=== PATIENT | male | born 1995 | race Caucasian/White ===

== ENCOUNTER 2023-03-12 13:10 | Emergency (ER) | payer OTHER, SELFPAY ==
[2023-03-12 13:12] VITALS: BP 123/87; PULSE 62; RESP 18; TEMP 35.9; O2SAT 100; BMI 26.6
--- NOTE | 2023-03-12 13:12 | ED.GENADULT ---
HPI - General Adult General Chief complaint: General Medical Stated complaint: chemical in eye Time Seen by Provider: 03/12/23 13:36 History of Present Illness HPI narrative: Patient is a 27-year-old male who presents to the emergency department for work related chemical exposure to the eye. 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 Rinsed the eye afterwards. Denies any burning sensation, redness, vision changes. Upon speaking with pharmacy, they reported that insulin may be absorbed in this fashion: Patient is checking in to have blood glucose level assessed. Asymptomatic of hypoglycemia at this time Related Data Allergies Allergy/AdvReac Type Severity Reaction Status Date / Time No Known Allergies Allergy Verified 03/12/23 13:12 Review of Systems Review of Systems: Yes all other systems are reviewed and are negative PMFSH Past Medical History Attestation statement: The following information was validated with the patient. Social History Social History Advance Directives: No Advance Directives Information Provided: No Physical Exam ED Vital Signs: Vital Signs - 24 hr 03/12/23 13:12 Temperature 96.7 F L Pulse Rate 62 Respiratory Rate 18 Blood Pressure 123/87 Pulse Oximetry 100 Oxygen Delivery Method Room Air BMI result Body Mass Index 26.6 Appearance: Alert.?Oriented to person, place and time. No acute distress.?Normal affect. Eyes: Pupils equal, round and reactive to light.?EOMi? Neck: Normal inspection.? Neck supple.?? CVS: Heart sounds normal. Normal heart rate and rhythm.? Pulses normal.?? Respiratory: No respiratory distress.? Lung sounds clear to auscultation bilaterally?? Skin: Skin warm and dry.? Normal skin color.? Neuro: Moves all extremities spontaneously. Sensation intact bilaterally. Ambulates with normal steady gait. Medical Decision Making Medical Decision Making MDM Narrative: Patient is a 27-year-old male who presents emergency department for evaluation of chemical spray into left only. No acute visual changes. Insulin exposure to the eye, per pharmacy absorption may occur by this route, recommended assessment of blood glucose level. Patient is not a diabetic. Not having any active symptoms of hypoglycemia. Physical examination is normal. Point of care glucose 101. At this time feel that patient is stable for discharge, discussed worrisome signs and symptoms that would warrant re-evaluation, including symptoms of hypoglycemia. All questions answered. Differential Diagnosis Differential Diagnoses: The differential diagnosis associated with the presentation includes (chemical exposure to eye, chemical burn, less likely corneal abrasion, ) Lab Data MDM Lab Attestation statement: I reviewed the patient's lab results. (As noted above) Labs: Lab Results 03/12/23 Range/Units 13:18 POC Glucose 101 (60-115) mg/dL Discharge Plan Discharge Clinical Impression: Chemical exposure of eye Patient Disposition: Home, Self-Care Additional Instructions: Return back to emergency department any new or worsening symptoms or concerns. If you develop symptoms of hypoglycemia, you should seek re-evaluation. Referrals: [facility] [Primary Care Provider] - Interventions: ED Discharge Assessment Last Done: 03/12/23 13:28
[2023-03-12 13:22] LABS: Glucose, Whole Blood 101 mg/dL (60-115)
--- NOTE | 2023-03-12 13:28 | PC.NURSE ---
POC WNL, provider aware.
== END 2023-03-12 13:38 | disposition home or self-care (01) ==
PROVIDERS: Emergency Provider Emergency Medicine
DX: Z04.2 Encounter for examination and observation following work accident (principal); T38.3X1A Poisoning by insulin and oral hypoglycemic [antidiabetic] drugs, accidental (unintentional), initial encounter; Y92.239 Unspecified place in hospital as the place of occurrence of the external cause
CPT/HCPCS: 82947; 99282

== ENCOUNTER 2023-03-24 08:08 | Outpatient (AMB) | payer OTHER, SELFPAY ==
[2023-03-24 08:18] VITALS: BP 112/62; PULSE 59; O2SAT 98; BMI 27.4
--- NOTE | 2023-03-24 08:18 | A.OFFPC_ITS ---
Vital Signs 03/24/23 08:18 Height 5 ft 7 in Weight 175 lb BMI 27.4 BP 112/62 Blood Pressure Location Lt brachial Position Sitting Pulse 59 Pulse Source Pulse Oximeter Pulse Oximetry (%) 98 Oxygen Delivery Method Room Air Intake Visit Reasons: New Patient, Lower back pain Allergies No Known Allergies Allergy (Verified 03/24/23 08:28) Medication List - Last Reconciled 03/24/23 by ARTURO Morales No Known Home Meds Tobacco use date assessed: 03/24/23 Dental Screening Dental Screen Date: 03/24/23 Did you have a dental visit in the last 12 months?: Yes Did you have a dental problem in the last 6 months where you did not have access to dental care?: No Was dental information given to patient?: Patient has dentist HPI HPI Comments History of Present Illness Details 27-year-old male new patient study to [facility] medical history significant for right bundle branch block, patient also reports has had palpitations in the past but states he has worn a Holter monitor which was unremarkable a except showed PVCs. Patient reports lumbar back pain x1 month, patient reports pain at times is is 6-7/10 aching pain but at times can feel very sharp like a nerve pain. Patient reports using hiwr-jxx-teidtrl lidocaine or Chaim-Jarvis with some relief. Patient states pain is worse with prolonged sitting. Denies any numbness or tingling in the lower extremities are lower extremity weakness, no bowel or bladder incontinence. Patient also reports cervical neck pain primarily where his stethoscope rests on his neck. Discussed physical therapy which patient patient would like to proceed with x-ray for further evaluation as well as physical therapy. [facility] Medical History (Updated 03/24/23 @ 08:38 by ARTURO Morales) Right bundle branch block Surgical History (Updated 03/24/23 @ 08:30 by ARTURO Morales) Hx of LASIK Family History Mother No problems noted. Father No problems noted. Sister No problems noted. Social History (Updated 03/24/23 @ 08:31 by ARTURO Morales) Housing: House Alcohol intake: never Patient Tobacco Use Status: Never used Tobacco e-Cigarette/Vaping Use: Never Used Second Hand Smoke Exposure: No service: No Current occupational status: employed Current occupational exposures/hazards: No Cognitive needs: No Hearing needs: No Vision needs: No Questionnaire PHQ-9 Over the last 2 weeks, how often have you been bothered by any of the following problems? 1. Little interest or pleasure in doing things: not at all 2. Feeling down, depressed, or hopeless: not at all 3. Trouble falling or staying asleep, or sleeping too much: not at all 4. Feeling tired or having little energy: not at all 5. Poor appetite or overeating: not at all 6. Feeling bad about yourself - or that you are a failure or have let yourself or your family down: not at all 7. Trouble concentrating on things, such as reading the newspaper or watching television: not at all 8. Moving or speaking so slowly that other people could have noticed. Or the opposite - being so fidgety or restless that you have been moving around a lot more than usual: not at all 9. Thoughts that you would be better off or of hurting yourself in some way: not at all Total score: 0 Depression Screening Interpretation: Negative Depression Screening Done: Yes 32830 - PHQ-9 Billing: Yes Source: Developed by Drs. Liam Taylor, Charito Gomez, Alexey Medrano and colleagues, with an educational roosevelt from [employer]. Thrive Questionnaire Date Thrive assessed: 03/24/23 I am a: Patient What is your living situation today?: I have a steady place to live Within the past 12 months, did the food you bought not last and you didn't have the money to get more?: Never true Within the past 12 months, did you worry whether your food would run out before you got money to buy more?: Never true Do you have trouble paying for medicines?: No Do you have trouble getting transportation to medical appointments?: No Do you have trouble paying your heating and electricity bill?: No Do you have trouble taking care of your child, family member or friend?: No Do you have trouble with day-to-day activities such as bathing, preparing meals, shopping, managing finances, etc.?: No Are you currently unemployed and looking for a job?: No Are you interested in more education?: No Currently or been in a relationship where the following occur: no concerns reported AUDIT C Alcohol Use Questionnaire (AUDIT-C) 1. How often do you have a drink containing alcohol?: Never Total Score: 0 OLLIE-7 AMB Questionnaire OLLIE-7 Date OLLIE - 7 assessed: 03/24/23 Feeling nervous, anxious, or on edge: 0 = Not at all Not being able to stop or control worryin = Not at all Worrying too much about different things: 0 = Not at all Trouble relaxin = Not at all Being so restless that it is hard to sit still: 0 = Not at all Becoming easily annoyed or irritable: 0 = Not at all Feeling afraid as if something awful might happen: 0 = Not at all Total OLLIE-7 score (0-4 normal; 5-9 mild; 10-14 moderate; 15-21 severe): 0 Source: Developed by Drs. Liam Taylor, Charito Gomez, Alexey Medrano and colleagues, with an educational roosevelt from [employer]. OLLIE-7 Assessment Billing OLLIE-7 Assessment Tool: OLLIE-7 Assessment 55096 Review of Systems Const Denies chills, Denies fatigue, Denies fever(s) and Denies poor appetite Eyes Denies no additional complaints ENT Reports Normal hearing present and Reports neck pain Card Denies chest pain, Denies syncope, Denies rapid heart rate and Denies dyspnea Resp Denies cough and Denies dyspnea GI Denies change in stool character, Denies constipation, Denies diarrhea, Denies nausea and Denies vomiting Denies dysuria, Denies urinary frequency and Denies urinary urgency Musc Reports back pain and Reports neck pain Neuro Reports Normal hearing present, Denies confusion and Denies syncope Psych Denies confusion Endo Denies fatigue Physical exam (Primary Care) Vital Signs: Last Vital Signs Pulse 59 03/24/23 08:18 BP 112/62 03/24/23 08:18 Pulse Ox 98 03/24/23 08:18 Oxygen Delivery Method Room Air 03/24/23 08:18 BMI result Body Mass Index 27.4 Tobacco/Smoking Status: Tobacco use Status Tobacco use date assessed 03/24/23 03/24/23 08:19 Patient Tobacco Use Status Never used Tobacco 03/24/23 08:31 e-Cigarette/Vaping Use Never Used 03/24/23 08:31 PHQ-9: PHQ-9 Score PHQ-9: Total score 0 03/24/23 08:35 Depression Screening Interpretation: Negative Thrive Assessment: Date of Thrive Assessment Date Thrive assessed 03/24/23 03/24/23 08:25 Currently or been in a relationship where the following occur: no concerns reported Const General: No confusion Orientation/consciousness: No confusion HENMT Head: Yes normocephalic and Yes atraumatic Eyes Conjunctivae: conjunctivae normal Chest Chest palpation & inspection: normal inspection of the chest Resp Effort & Inspection: normal respiratory effort Auscultation: clear to auscultation bilaterally, no crackles, no rhonchi and no wheezes Cardio Rate: regular rate Rhythm: regular rhythm Heart sounds: S1 normal heart sound present and S2 normal heart sound present GI Inspection: Yes normal to inspection Back/Spine/Pelvis Cervical Spine: normal cervical lordosis, cervical ROM normal, No Cervical spine tenderness and No step off deformity Thoracic/Lumbar Spine: thoracic and lumbar spine normal to inspection, straight leg raise negative bilaterally, No paraspinal muscle tenderness, No thoracic spinal tenderness and No lumbar spinal tenderness Pelvis: no buttock tenderness Neuro General: No confusion Cranial nerves: Yes Normal hearing present Extrem General: No edema Assessment and Plan Assessment & Plan (1) Cervical pain (neck): Code(s): M54.2 - Cervicalgia Plan: Cervical neck x-ray ordered as requested by patient. Patient advise can take [id number]-qtqqdbp Tylenol or ibuprofen as needed for pain and apply heat. (2) Lumbar back pain: Code(s): M54.50 - Low back pain, unspecified Plan: Lumbar spine x-ray ordered for further evaluation. Referral entered to physical therapy. Patient advise can take efeg-jet-vtvtzxu Tylenol or ibuprofen as needed for pain and apply heat. Plan Follow-up in 3 months for physical appointment. Fasting labs ordered. Orders: Orders XR cervical spine 2V Today M54.2 - Cervicalgia Complete Blood Count Auto Diff Today Z13.0 - Encounter for screening for diseases of the blood and blood-forming organs and certain disorders involving the immune mechanism Comprehensive [place]. Panel Fast Today Z13.1 - Encounter for screening for diabetes mellitus Lipid Panel Today Z13.220 - Encounter for screening for lipoid disorders TSH reflex Free T4 Today Z13.29 - Encounter for screening for other suspected endocrine disorder XR lumbar spine 2-3V Today M54.50 - Low back pain, unspecified PT Evaluation and Treatment Today M54.50 - Low back pain, unspecified Coding Level of Care Code New Pt Level 3 (25710) Diagnoses Cervical pain (neck) M54.2 Lumbar back pain M54.50 Additional Codes OLLIE-7 Assessment Billing - OLLIE-7 Assessment Tool: OLLIE-7 Assessment 74164 ([id number])
== END 2023-03-24 08:49 | disposition home or self-care (01) ==
PROVIDERS: PCP Nurse Practitioner Family; Visit Provider Nurse Practitioner Family
DX: M54.2 Cervicalgia (principal); M54.50 Low back pain, unspecified
CPT/HCPCS: 99203

== ENCOUNTER 2023-03-25 10:17 | Outpatient (REF) | payer OTHER, SELFPAY ==
--- NOTE | ~2023-03-25 | XR_ITS ---
EXAMINATION: XR CERVICAL SPINE CLINICAL INFORMATION: Neck pain COMPARISON: None available. TECHNIQUE: 4 views of the cervical spine were obtained. FINDINGS: The visualized cervical vertebrae are intact with normal alignment. Odontoid process is intact with normal C1/C2 lateral masses alignment. Pre-dental interval is normal. Pre vertebral soft tissue is normal in thickness. Bilateral oblique x-rays of cervical spine show patent cervical neural foramina. XR/XR cervical spine 2V IMPRESSION: 1. Normal cervical spine x-ray. 2. No fracture or dislocation of cervical spine is seen.
--- NOTE | ~2023-03-25 | XR_ITS ---
EXAMINATION: XR LUMBOSACRAL SPINE CLINICAL INFORMATION: Low back pain COMPARISON: None available. TECHNIQUE: Three views of the lumbosacral spine. FINDINGS: The visualized lumbar vertebrae are intact with normal alignment. Intervertebral disc spaces are normal. XR/XR lumbar spine 2-3V IMPRESSION: 1. Normal lumbosacral spine x-ray. 2. No fracture or dislocation of lumbar spine is seen.
[2023-03-25 10:25] LABS: MANUAL DIFF FLAG NO
[2023-03-25 10:56] LABS: Basophils Absolute Auto 0.1 X10*3/uL (0.0-0.2); Basophils Percent Auto 1.1 % (0-2); Eosinophils Absolute Auto 0.2 X10*3/uL (0.0-0.4); Hematocrit 42.4 % (42.0-52.0); Hemoglobin 14.5 g/dl (14.0-18.0); Imm Gran Abs Auto 0.02 X10*3/uL (0.00-0.03); Imm Gran Pct Auto 0.4 % (0.0-0.4); Lymphocytes Absolute Auto 1.6 X10*3/uL (1.2-4.9); Lymphocytes Percent Auto 28.2 % (20-40); Mean Corpuscular HGB Conc 34.2 g/dl (31.0-36.0); Mean Corpuscular Hemoglobin 30.1 pg (27.0-33.0); Mean Corpuscular Volume 88.1 fL (80.0-98.0); Mean Platelet Volume 12.9 fL (9.4-12.4); Monocytes Absolute Auto 0.5 X10*3/uL (0.1-1.2); Monocytes Percent Auto 8.9 % (2-11); Neutrophils Absolute Auto 3.2 x10*3/uL (2.0-8.3); Neutrophils Percent Auto 57.4 % (45-73); Platelet Count 176 X10*3/uL (160-400); Red Blood Count 4.81 X10*6/uL (4.60-5.80); Red Cell Distribution Width 12.5 % (11.0-16.0); White Blood Count 5.5 X10*3/uL (4.8-10.8)
[2023-03-25 11:27] LABS: Alanine Aminotransferase 42 U/L (0-40); Albumin Level 4.5 g/dL (3.5-5.0); Alkaline Phosphatase 46 U/L (39-117); Anion Gap 11 (12-20); Aspartate Amino Transferase 22 U/L (5-37); Bilirubin Total 0.7 mg/dL (0.0-1.0); Blood Urea Nitrogen 16 mg/dL (9-16); Calcium 9.5 mg/dL (8.4-10.2); Carbon Dioxide 29 mmol/L (22-29); Chloride 103 mmol/L (96-108); Cholesterol 174 mg/dL (<200); Estimated Glomerular Filt Rate > 60; Glucose Fasting 112 mg/dL (60-99); HDL Cholesterol 43 mg/dL (>40); LDL Cholesterol Calculated 115 mg/dL (<100); Potassium 4.3 mmol/L (3.3-5.1); Sodium 139 mmol/L (135-145); Total Protein 7.9 g/dL (6.5-8.0); Triglycerides 84 mg/dL (<150)
== END 2023-03-25 10:18 | disposition home or self-care (01) ==
LOC: HO.XRAY 10:17
PROVIDERS: PCP Nurse Practitioner Family; Visit Provider Nurse Practitioner Family
DX: Z13.220 Encounter for screening for lipoid disorders (principal); Z13.0 Encounter for screening for diseases of the blood and blood-forming organs and certain disorders involving the immune mechanism; Z13.29 Encounter for screening for other suspected endocrine disorder; M54.2 Cervicalgia; M54.50 Low back pain, unspecified
CPT/HCPCS: 36415; 72040; 72100; 80053; 80061; 84443; 85025

== ENCOUNTER 2023-05-25 11:00 | Outpatient (RCR) | payer OTHER, SELFPAY ==
--- NOTE | 2023-04-26 12:56 | MHC.PT.EP ---
[facility] [place] Office [place] Office [place] Office [address] Josep Talavera [address] [phone] F: [phone] F: [phone] F: [phone] F: [phone] Physical Therapy Plan of Care Date of Evaluation: 04/26/23 Date of Surgery: Diagnosis: This is a 27 yo male presenting to skilled PT with a script for lumbar pain. Assessment: This is a 27 yo male presenting to skilled PT with a script for lumbar pain. Patient reports lumbar back pain x2 months now insidiously onset. 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 Patient reports pain at times is up to a 5/10 but can be as low as a 2/10. Pain is located centrally and L side low back, but this can radiate to the R as well. Pain improves with sitting up straight or laying supine. Pain increases with bending and flexion patterns as well as prolonged sitting in poor chair support. Pain is described as discomfort, aching however can be sharp when bad. Patient reports using esss-juv-ryxecua tylenol and MH for pain relief. Denies any numbness or tingling in the lower extremities, no groin pain changes to sensation. Assessment reveals pain that ranges from up to a 2-5/10 at the worst. Patient demos decreased lumbar ROM, core, back and glut strength, TTP at L PSIS and mild LLD on R, impaired posture with forward head and rounded shoulders when relaxed with posterior pelvic tilt. Based on functional limitations, impaired QOL and pain tolerance patient is a good candidate for skilled PT 2x/wk for 4wks. Frequency and Duration: The patient will be seen 2x/wk for 4wks Short Term Goals: Pt will demonstrate improved postural awareness and understanding of core engagement with supine and standing tasks without cues throughout session to improve overall back safety in 2 weeks. Pt will demonstrate centralization of sx in 2 weeks. Pt will continue to reinforce precautions, sitting, standing and ADL modifications with proper body mechanics in 2 wks. Banquet Houseperson Goals: Pt will demonstrate improved outcome measure by 5 points in 4 weeks for improved functional mobility. Pt will demonstrate ability to bend and lift WNL min to no pain for work related tasks in 4 wks. Pt will be I in HEP and compliant in 4wks Treatment Plan: Modalities to reduce pain, spasms and effusion. Manual therapy to restore motion and function. Therapeutic exercise to improve strength and flexibility. Neuromuscular re-education for posture and balance. Therapeutic activities to return to functional activities of daily living. Electronically signed by: Rachel Menezes PT Please sign and return to therapist. Thank you for your referral.
--- NOTE | 2023-06-23 13:56 | MHC.PT.DC ---
[facility] [place] Office [place] Office [place] Office [address] Josep Talavera [address] [phone] F: [phone] F: [phone] F: [phone] F: [phone] Physical Therapy Discharge Report Diagnosis: This is a 27 yo male presenting to skilled PT with a script for lumbar pain. Date of Surgery: Date of Evaluation: 04/26/23 Date of Discharge: 06/23/23 Treatments to Date: 5 Cancellations to Date: 0 No Shows to Date: 0 Discharge Status: Achieved Goals Improved Function Independent with HEP Patient Elected to Stop Discharge Summary: 05/25/23: Patient has been going to the gym, he was a little sore after last session but it didn't last longer than a day. He has no more appointments scheduled and we had a discussion about continuing PT or not. We settled on more consistency at the gym and focusing on glut, back and core strengthening. I educated him that at this time he doesn't appear to need skilled PT but ill leave his chart open for 30 days. Electronically signed by: Rachel Menezes, PT Please sign and return to therapist. Thank you for your referral.
== END 2023-06-23 13:57 | disposition home or self-care (01) ==
LOC: HO.PTCHIC 11:00
PROVIDERS: PCP Nurse Practitioner Family; Visit Provider Nurse Practitioner Family
DX: M54.50 Low back pain, unspecified (principal)
CPT/HCPCS: 97110; 97140; 97161

== ENCOUNTER 2023-12-22 15:59 | Outpatient (AMB) | payer OTHER, SELFPAY ==
[2023-12-22 16:08] VITALS: BP 116/70; PULSE 60; O2SAT 95; BMI 25.8
--- NOTE | 2023-12-22 16:08 | MHC.PC.OV ---
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 Required: No Accompanied by: Self / Same As Patient Allergies No Known Allergies Allergy (Verified 03/24/23 08:28) Medication List - Last Reconciled 12/22/23 by Surjit Ceja MD epinephrine IM Tobacco use date assessed: 12/22/23 Dental Screening Dental Screen Date: 12/22/23 Did you have a dental visit in the last 12 months?: Yes Did you have a dental problem in the last 6 months where you did not have access to dental care?: No Was dental information given to patient?: Patient has dentist HPI Annual Exam HPI Details 28-year-old male(noted 10 lb weight loss) with a history of elevated fasting glucose coming in for physical exam last seen in 2022 having back pain. Patient was sent for physical therapy had an x-ray done both normal lumbosacral spine. had EGD before and ET done having occ dysphagia. complains of low back pain, had PT done and for a numbner of months pain radiates to the L leg , hand pain bilateral with hand numbness L thumb area. problem with sleeping PFSH Medical History (Updated 12/22/23 @ 17:18 by Surjit Ceja MD) Right bundle branch block Surgical History (Updated 03/24/23 @ 08:30 by ARTURO Morales) Hx of LASIK Family History (Updated 12/22/23 @ 17:08 by Surjit Ceja MD) Mother No problems noted. Father No problems noted. Sister No problems noted. Maternal Aunt Hyperthyroidism Maternal Grandmother Diabetes mellitus Social History (Updated 03/24/23 @ 08:31 by ARTURO Morales) Housing: House Alcohol intake: never Patient Tobacco Use Status: Never used Tobacco Tobacco use type: Cigarette e-Cigarette/Vaping Use: Never Used Second Hand Smoke Exposure: No service: No Current occupational status: employed Current occupational exposures/hazards: No Cognitive needs: No Hearing needs: No Vision needs: No Questionnaire PHQ-9 Over the last 2 weeks, how often have you been bothered by any of the following problems? 1. Little interest or pleasure in doing things: not at all 2. Feeling down, depressed, or hopeless: not at all 3. Trouble falling or staying asleep, or sleeping too much: more than half the days 4. Feeling tired or having little energy: several days 5. Poor appetite or overeating: not at all 6. Feeling bad about yourself - or that you are a failure or have let yourself or your family down: not at all 7. Trouble concentrating on things, such as reading the newspaper or watching television: not at all 8. Moving or speaking so slowly that other people could have noticed. Or the opposite - being so fidgety or restless that you have been moving around a lot more than usual: not at all 9. Thoughts that you would be better off or of hurting yourself in some way: not at all Total score: 3 Source: Developed by Drs. Liam Taylor, Charito Gomez, Alexey Medrano and colleagues, with an educational roosevelt from [employer]. Thrive Questionnaire Date Thrive assessed: 12/15/23 I am a: Patient What is your living situation today?: I have a steady place to live Within the past 12 months, did the food you bought not last and you didn't have the money to get more?: Never true Within the past 12 months, did you worry whether your food would run out before you got money to buy more?: Never true Do you have trouble paying for medicines?: No Do you have trouble getting transportation to medical appointments?: No Do you have trouble paying your heating and electricity bill?: No Do you have trouble taking care of your child, family member or friend?: No Do you have trouble with day-to-day activities such as bathing, preparing meals, shopping, managing finances, etc.?: No Are you currently unemployed and looking for a job?: No Are you interested in more education?: No Please select the resources that you would like help with: None Currently or been in a relationship where the following occur: No concerns reported THRIVE Score: 0 AUDIT C Alcohol Use Questionnaire (AUDIT-C) 1. How often do you have a drink containing alcohol?: Never 2. How many drinks containing alcohol do you have on a typical day when you are drinking?: 1 or 2 3. How often do you have six or more drinks on one occasion?: Never Total Score: 0 OLLIE-7 AMB Questionnaire OLLIE-7 Date OLLIE - 7 assessed: 03/24/23 Feeling nervous, anxious, or on edge: 0 = Not at all Not being able to stop or control worryin = Not at all Worrying too much about different things: 0 = Not at all Trouble relaxin = Not at all Being so restless that it is hard to sit still: 0 = Not at all Becoming easily annoyed or irritable: 0 = Not at all Feeling afraid as if something awful might happen: 0 = Not at all Total OLLIE-7 score (0-4 normal; 5-9 mild; 10-14 moderate; 15-21 severe): 0 Source: Developed by Drs. Liam Taylor, Charito Gomez, Alexey Medrano and colleagues, with an educational roosevelt from [employer]. Review of Systems Const Denies poor appetite and Denies weakness Eyes Denies no additional complaints ENT Reports Normal hearing present, Denies dizziness, Denies nasal congestion, Denies tinnitus and Denies sore throat Card Denies chest pain, Denies syncope, Denies rapid heart rate and Denies dyspnea Resp Denies cough and Denies dyspnea GI Denies change in stool character, Reports constipation, Denies diarrhea, Denies nausea and Denies vomiting Denies dysuria and Denies urinary frequency Neuro Reports Normal hearing present, Denies confusion, Denies dizziness, Denies syncope and Denies weakness Psych Denies confusion Physical exam (Primary Care) Vital Signs: Last Vital Signs Pulse 60 12/22/23 16:08 BP 116/70 12/22/23 16:08 Pulse Ox 95 12/22/23 16:08 Oxygen Delivery Method Room Air 12/22/23 16:08 BMI result Body Mass Index 25.8 Tobacco/Smoking Status: Tobacco use Status Tobacco use date assessed 12/22/23 12/22/23 16:12 Patient Tobacco Use Status Never used Tobacco 12/22/23 16:12 Tobacco use type Cigarette 12/22/23 16:12 e-Cigarette/Vaping Use Never Used 12/22/23 16:12 PHQ-9: PHQ-9 Score PHQ-9: Total score 3 12/22/23 17:04 Thrive Assessment: Date of Thrive Assessment Date Thrive assessed 12/15/23 12/22/23 16:12 Currently or been in a relationship where the following occur: No concerns reported Const General: No confusion Orientation/consciousness: No confusion HENMT Head: Yes normocephalic Ears: external ears normal and TM's normal bilaterally Face and sinus: Yes normal facial exam Mouth: moist mucous membranes Throat: Yes tonsils normal Eyes Conjunctivae: conjunctivae normal Pupils: Equal, round and reactive pupils present and Pupil accommodation reflex normal Direct Ophthalmoscopy: normal light reflex Neck Neck: No lymphadenopathy Thyroid: Thyroid normal Chest Chest palpation & inspection: normal inspection of the chest Resp Effort & Inspection: normal respiratory effort and no audible wheezes Auscultation: clear to auscultation bilaterally, no crackles, no wheezes and lung sounds not diminished Cardio Rate: regular rate Rhythm: regular rhythm Peripheral pulses: radial pulses present and dorsalis pedis present GI Other: visual check negative Palpation (GI): no masses Auscultation: normal bowel sounds and normoactive bowel sounds Rectal Exam - Male: Yes deferred Male General Exam: Yes normal external exam Skin General skin exam: no rashes or lesions noted Rashes: no rashes Neuro General: No confusion Cranial nerves: Yes Equal, round and reactive pupils present and Yes Normal hearing present Cognition (Neuro): normal cognition Gait exam (Neuro): Normal gait present Motor exam (neuro): 5/5 motor strength present throughout Deep tendon reflexes (DTR's): Right brachioradialis reflex intensity grade: 2+, Left brachioradialis reflex intensity grade: 2+, Right patellar reflex intensity grade: 2+ and Left patellar reflex intensity grade: 2+ Extrem General: No edema Assessment and Plan Assessment & Plan (1) Annual physical exam: Code(s): Z00.00 - Encounter for general adult medical examination without abnormal findings Plan: Patient is advised to eat healthy, keep well hydrated, keep active and have adequate sleep. (2) Elevated fasting glucose: Code(s): R73.01 - Impaired fasting glucose Plan: Decrease the amount of carbohydrate intake, pasta, bread, rice and potatoes are all sugar and that is aside from all the sweet stuff, remember that fruits are good but they are Sweet also. Will retest blood (3) Liver function study, abnormal: Code(s): R94.5 - Abnormal results of liver function studies Plan: Need to retest blood work as well as an ultrasound of the abdomen (4) Radicular low back pain: Code(s): M54.10 - Radiculopathy, site unspecified (5) Numbness of left thumb: Code(s): R20.0 - Anesthesia of skin (6) Bilateral hand pain: Code(s): M79.641 - Pain in right hand; M79.642 - Pain in left hand Orders: Orders Hemoglobin A1c Today R73.01 - Impaired fasting glucose US abdomen complete Today R79.89 - Other specified abnormal findings of blood chemistry, R94.5 - Abnormal results of liver function studies Hepatitis B,C Profile Today R79.89 - Other specified abnormal findings of blood chemistry, R94.5 - Abnormal results of liver function studies NE nerve conduction velocity Today R20.0 - Anesthesia of skin NE electromyogram (EMG) Today R20.0 - Anesthesia of skin XR hand LT 2V Today M79.641 - Pain in right hand, M79.642 - Pain in left hand C Reactive Protein Today M79.641 - Pain in right hand, M79.642 - Pain in left hand MR lumbar spine wo con Today M54.10 - Radiculopathy, site unspecified Complete Blood Count Auto Diff Today R73.01 - Impaired fasting glucose Comprehensive Met. Panel Today R73.01 - Impaired fasting glucose Free T4 (Free Thyroxine) Today R73.01 - Impaired fasting glucose Thyroid Stimulating Hormone Today R73.01 - Impaired fasting glucose Lipid Panel Today E78.00 - Pure hypercholesterolemia, unspecified, R73.01 - Impaired fasting glucose Vitamin B12 and Folate Today R73.01 - Impaired fasting glucose XR hand RT 2V Today M79.641 - Pain in right hand, M79.642 - Pain in left hand Erythrocyte Sedimentation Rate Today M79.641 - Pain in right hand, M79.642 - Pain in left hand Ferritin Today M54.10 - Radiculopathy, site unspecified Coding Level of Care Code Est Pt Level 3 (50725) Est Pt Prev Care 18-39y(46804) Diagnoses Annual physical exam Z00.00 Elevated fasting glucose R73.01 Liver function study, abnormal R94.5 Radicular low back pain M54.10 Numbness of left thumb R20.0 Bilateral hand pain M79.641; M79.642
== END 2023-12-22 17:37 | disposition home or self-care (01) ==
PROVIDERS: PCP Nurse Practitioner Family; Visit Provider Internal Medicine
DX: Z00.00 Encounter for general adult medical examination without abnormal findings (principal); R73.01 Impaired fasting glucose; R94.5 Abnormal results of liver function studies; M54.10 Radiculopathy, site unspecified; R20.0 Anesthesia of skin; M79.641 Pain in right hand; M79.642 Pain in left hand
CPT/HCPCS: 99213; 99395

== ENCOUNTER 2023-12-23 07:26 | Outpatient (REF) | payer OTHER, SELFPAY ==
--- NOTE | ~2023-12-23 | XR_ITS ---
EXAMINATION: XR HAND, RIGHT CLINICAL INFORMATION: Right hand pain COMPARISON: None available. TECHNIQUE: AP, lateral, and oblique views of the right hand. FINDINGS: The bones and soft tissues are normal. No fracture. Alignment is anatomic. Joint spaces are maintained. XR/XR hand RT 2V IMPRESSION: Normal right hand. Electronically signed by: Hitesh Neal MD 12/29/2023 01:50 PM EDT
--- NOTE | ~2023-12-23 | XR_ITS ---
EXAMINATION: XR HAND, LEFT CLINICAL INFORMATION: Left hand pain COMPARISON: None available. TECHNIQUE: PA, lateral, and oblique views of the left hand. FINDINGS: The bones and soft tissues are normal. No fracture. Alignment is anatomic. Joint spaces are maintained. No erosions or soft tissue calcifications. XR/XR hand LT 2V IMPRESSION: Normal left hand. Electronically signed by: Hitesh Neal MD 12/29/2023 01:50 PM EDT
[2023-12-23 07:36] LABS: MANUAL DIFF FLAG NO
[2023-12-23 07:57] LABS: Estimated Average Glucose 97 mg/dL
[2023-12-23 07:59] LABS: Basophils Absolute Auto 0.1 X10*3/uL (0.0-0.2); Basophils Percent Auto 1.1 % (0-2); Eosinophils Absolute Auto 0.2 X10*3/uL (0.0-0.4); Eosinophils Percent Auto 4.6 % (0-4); Hematocrit 40.7 % (42.0-52.0); Hemoglobin 14.6 g/dl (14.0-18.0); Imm Gran Abs Auto 0.01 X10*3/uL (0.00-0.03); Imm Gran Pct Auto 0.2 % (0.0-0.4); Lymphocytes Absolute Auto 1.8 X10*3/uL (1.2-4.9); Lymphocytes Percent Auto 38.9 % (20-40); Mean Corpuscular HGB Conc 35.9 g/dl (31.0-36.0); Mean Corpuscular Hemoglobin 30.9 pg (27.0-33.0); Mean Corpuscular Volume 86.2 fL (80.0-98.0); Mean Platelet Volume 12.2 fL (9.4-12.4); Monocytes Absolute Auto 0.4 X10*3/uL (0.1-1.2); Monocytes Percent Auto 8.6 % (2-11); Neutrophils Absolute Auto 2.1 x10*3/uL (2.0-8.3); Neutrophils Percent Auto 46.6 % (45-73); Platelet Count 183 X10*3/uL (160-400); Red Blood Count 4.72 X10*6/uL (4.60-5.80); White Blood Count 4.6 X10*3/uL (4.8-10.8)
[2023-12-23 08:36] LABS: Alanine Aminotransferase 16 U/L (0-40); Albumin Level 4.3 g/dL (3.5-5.0); Alkaline Phosphatase 44 U/L (39-117); Anion Gap 11 (12-20); Aspartate Amino Transferase 15 U/L (5-37); Bilirubin Total 0.8 mg/dL (0.0-1.0); Blood Urea Nitrogen 13 mg/dL (9-16); C Reactive Protein < 0.10 mg/dL (< or = 0.50); Calcium 9.4 mg/dL (8.4-10.2); Carbon Dioxide 28 mmol/L (22-29); Chloride 107 mmol/L (96-108); Cholesterol 169 mg/dL (<200); Estimated Glomerular Filt Rate > 60; Glucose Random 91 mg/dL (60-115); HDL Cholesterol 41 mg/dL (>40); LDL Cholesterol Calculated 118 mg/dL (<100); Potassium 4.1 mmol/L (3.3-5.1); Sodium 142 mmol/L (135-145); Total Protein 7.3 g/dL (6.5-8.0); Triglycerides 52 mg/dL (<150)
[2023-12-23 08:42] LABS: HBS Num1 > 1000.00 mIU/mL (0-7.99); HBc Num1 0.08 S/CO (0.00-0.79); HBsAGNum1 0.27 S/CO (0.00-0.99); Hepatitis B Core Antibody Nonreactive (Nonreactive); Hepatitis B Surface Antigen Negative (Negative); ~HepC Num1 0.27 S/CO (0.00-0.79); ~Hepatitis B Surface Antibody REACTIVE (Nonreactive); ~Hepatitis C Antibody Nonreactive (Nonreactive)
[2023-12-23 08:47] LABS: Erythrocyte Sedimentation Rate 4 MM/HR (0-15); Ferritin 151 ng/mL (20-250); Free T4 (Free Thyroxine) 0.99 ng/dL (0.71-1.85)
[2023-12-23 08:54] LABS: Folate 8.3 ng/mL (> or = 4.0); Vitamin B12 1044 pg/mL (200-900)
== END 2023-12-23 07:27 | disposition home or self-care (01) ==
LOC: HO.XRAY 07:26
PROVIDERS: PCP Internal Medicine; Visit Provider Internal Medicine
DX: M79.641 Pain in right hand (principal); M79.642 Pain in left hand; R73.01 Impaired fasting glucose; M54.10 Radiculopathy, site unspecified; R79.89 Other specified abnormal findings of blood chemistry; R94.5 Abnormal results of liver function studies; E78.00 Pure hypercholesterolemia, unspecified
CPT/HCPCS: 36415; 73120; 80053; 80061; 82607; 82728; 82746; 83036; 84439; 84443; 85025; 85652; 86140; 86704; 86706; 86803; 87340

== ENCOUNTER 2023-12-29 08:06 | Outpatient (REF) | payer OTHER, SELFPAY ==
--- NOTE | ~2023-12-29 | US_ITS ---
EXAMINATION: US ABDOMEN COMPLETE CLINICAL INFORMATION: Other specified abnormal findings of blood chemistry. COMPARISON: None available. TECHNIQUE: Real-time imaging of the abdominal viscera. Limited visualization due to bowel gas. FINDINGS: PANCREAS: Limited visualization. Imaged portion of the pancreas demonstrates a heterogeneous echotexture. ABDOMINAL AORTA: The proximal, mid, and distal segments are normal in caliber. INFERIOR VENA CAVA: Visualized portions are normal. LIVER: Increased hepatic parenchymal heterogeneity and echogenicity could be associated with hepatocellular disease/hepatic steatosis and substantially limits visualization. Correlation with liver function tests and clinical exam recommended to determine further management. GALLBLADDER: No gallstones. No gallbladder wall thickening. COMMON BILE DUCT: Normal in caliber measuring 0.4 cm in diameter. RIGHT KIDNEY: No hydronephrosis. No renal calculi. Limited visualization. The kidney measures 10.5 cm in maximum dimension. LEFT KIDNEY: No hydronephrosis. No renal calculi. Limited visualization. The kidney measures 10.5 cm in maximum dimension. SPLEEN: Normal. The spleen measures 10.9 cm in maximum dimension. FREE FLUID: None. US/US abdomen complete IMPRESSION: 1. Increased hepatic parenchymal heterogeneity and echogenicity could be associated with hepatocellular disease/hepatic steatosis and substantially limits visualization. Correlation with liver function tests and clinical exam recommended to determine further management. 2. Imaged portion of the pancreas demonstrates a heterogeneous echotexture. Electronically signed by: Maya Ervin MD 01/03/2024 01:37 PM EDT
== END 2023-12-29 08:07 | disposition home or self-care (01) ==
LOC: HO.US 08:06
PROVIDERS: PCP Internal Medicine; Visit Provider Internal Medicine
DX: R79.89 Other specified abnormal findings of blood chemistry (principal); R94.5 Abnormal results of liver function studies
CPT/HCPCS: 76700

== ENCOUNTER 2024-01-06 13:19 | Outpatient (AMB) | payer OTHER, SELFPAY ==
--- NOTE | 2024-01-06 13:20 | A.OFFPC_ITS ---
Intake Visit Reasons: Discuss Results Intake Note: Patient is here to follow up on Discuss lab results. Loan And Credit Manager Required: No Utilization Management Um Nurse: Not Required per policy Accompanied by: Self / Same As Patient Allergies No Known Allergies Allergy (Verified 01/06/24 13:21) Tobacco use date assessed: 12/22/23 Dental Screening Dental Screen Date: 12/22/23 HPI Discuss Results HPI Details 28-year-old male with history of elevate d fasting glucose elevated liver function tests calling in for follow-up. Last seen for physical exam in 12/22/2023. Patient had blood work done showing elevated liver function test and follow-up blood test and ultrasound was requested. Results came up as hepatic steatosis had some hand pain and an x-ray was requested revealing negative results. Hepatitis profile is positive for antibody [facility] Medical History (Updated 01/03/24 @ 16:49 by Surjit Ceja MD) Right bundle branch block Surgical History Hx of LASIK Family History Mother No problems noted. Father No problems noted. Sister No problems noted. Maternal Aunt Hyperthyroidism Maternal Grandmother Diabetes mellitus Social History Housing: House Alcohol intake: never Patient Tobacco Use Status: Never used Tobacco Tobacco use type: Cigarette e-Cigarette/Vaping Use: Never Used Second Hand Smoke Exposure: No service: No Current occupational status: employed Current occupational exposures/hazards: No Cognitive needs: No Hearing needs: No Vision needs: No Questionnaire Thrive Questionnaire Date Thrive assessed: 12/15/23 OLLIE-7 AMB Questionnaire OLLIE-7 Date OLLIE - 7 assessed: 01/06/24 Feeling nervous, anxious, or on edge: 0 = Not at all Not being able to stop or control worryin = Not at all Worrying too much about different things: 0 = Not at all Trouble relaxin = Not at all Being so restless that it is hard to sit still: 0 = Not at all Becoming easily annoyed or irritable: 0 = Not at all Feeling afraid as if something awful might happen: 0 = Not at all Total OLLIE-7 score (0-4 normal; 5-9 mild; 10-14 moderate; 15-21 severe): 0 Source: Developed by Drs. Liam Taylor, Charito Gomez, Alexey Medrano and colleagues, with an educational roosevelt from [employer]. Physical exam (Primary Care) Tobacco/Smoking Status: Tobacco use Status Tobacco use date assessed 12/22/23 01/06/24 13:21 Patient Tobacco Use Status Never used Tobacco 01/06/24 13:21 Tobacco use type Cigarette 01/06/24 13:21 e-Cigarette/Vaping Use Never Used 01/06/24 13:21 Thrive Assessment: Date of Thrive Assessment Date Thrive assessed 12/15/23 01/06/24 13:21 Telehealth Telehealth Telehealth Platform: Telephone Location of provider rendering services: practice address Location of patient: address on file Patient Identification confirmed using: Name, : Yes Telehealth method: voice only Patient verbally consented to treatment: Yes Patient verbally consented to billing insurance company: Yes Patient informed of any privacy concerns related to visit: Yes Minutes spent on Phone/Video with Pt.: 15 Assessment and Plan Assessment & Plan (1) Hepatic steatosis: Comment: 12/2023 Code(s): K76.0 - Fatty (change of) liver, not elsewhere classified Coding Level of Care Code Tele Est Pt Level 3 (10998) Diagnoses Hepatic steatosis K76.0
== END 2024-01-06 16:35 | disposition home or self-care (01) ==
LOC: HO.HMCH 13:19
PROVIDERS: PCP Internal Medicine; Visit Provider Internal Medicine
DX: K76.0 Fatty (change of) liver, not elsewhere classified (principal)

== ENCOUNTER → 2024-01-06 13:19 | Outpatient (BNVA) | payer OTHER, SELFPAY | PROVIDERS: PCP Internal Medicine; Visit Provider Internal Medicine ==

== ENCOUNTER 2024-01-12 13:09 | Outpatient (REF) | payer OTHER, SELFPAY ==
--- NOTE | 2024-01-12 13:12 | EMG_ITS ---
Chief complaint: Noted numbness and pain on left 2nd and 1st digits for the last 1 and half months. Reason for referral: Evaluate for Carpal Tunnel Syndrome Referred by: Dr. Ceja Procedure done: Left upper extremity NCS/EMG Precautions and/or limitations: None The limb temperature was monitored continuously and remained between 32-36 degrees C during the performance of the NCS. Nerve Conduction Studies Anti Sensory Summary Table ?Stim Site NR Onset (ms) Norm Onset (ms) Peak (ms) Norm Peak (ms) O-P Amp (?V) Norm O-P Amp Site1 Site2 Delta-0 (ms) Dist (cm) Juice (m/s) Norm Juice (m/s) Left Median Anti Sensory (2nd Digit) Wrist ? 2.5 3.3 <3.6 48.4 >10 Wrist 2nd Digit 2.5 14.0 56 Left Ulnar Anti Sensory (5th Digit) Wrist ? 2.0 2.8 <3.7 38.9 >15.0 Wrist 5th Digit 2.0 14.0 70 Motor Summary Table ?Stim Site NR Onset (ms) Norm Onset (ms) O-P Amp (mV) Norm O-P Amp iAmp (mV) Amp (1st) (%) Site1 Site2 Delta-0 (ms) Dist (cm) Juice (m/s) Norm Juice (m/s) Left Median Motor (Abd Poll Brev) Wrist ? 3.8 <3.9 15.1 >4.5 17.8 100.0 Elbow Wrist 3.8 23.5 62 >45 Elbow ? 7.6 13.2 15.3 87.4 Left Ulnar Motor (Abd Dig Minimi) Wrist ? 2.5 <3.0 6.3 >5 7.7 100.0 B Elbow Wrist 3.1 19.0 61 >45 B Elbow ? 5.6 6.4 8.0 101.6 A Elbow B Elbow 1.6 10.0 62 >45 A Elbow ? 7.2 6.2 7.8 98.4 Comparison Summary Table ?Stim Site NR Peak (ms) Norm Peak (ms) P-T Amp (?V) Site1 Site2 Delta-P (ms) Norm Delta (ms) Left Median/Radial Dig I Comparison (Digit 1 - 10cm) Median ? 2.9 <2.9 57.5 Median Radial 0.5 Radial ? 2.4 <2.8 13.4 EMG ?Side Muscle Nerve Root Ins Act Fibs Psw Amp Dur Poly Recrt Int Pat Comment Left 1stDorInt Ulnar C8-T1 Nml Nml Nml Nml Nml 0 Nml Complete Left FlexCarRad Median C6-7 Nml Nml Nml Nml Nml 0 Nml Complete Left Biceps Musculocut C5-6 Nml Nml Nml Nml Nml 0 Nml Complete Left Triceps Radial C6-7-8 Nml Nml Nml Nml Nml 0 Nml Complete Left Deltoid Axillary C5-6 Nml Nml Nml Nml Nml 0 Nml Complete FINDINGS: All motor and sensory nerves tested showed normal latencies, amplitudes and conduction velocities. Concentric needle EMG was performed in selected muscles of the left upper extremity Study did not reveal signs of electric abnormalities as shown in the table above. IMPRESSION: 1. This is a normal study. 2. There is no electrodiagnostic evidence for median neuropathy, ulnar neuropathy, brachial plexopathy, or cervical radiculopathy. Thank you for your kind referral. Sandra Bazan MD, YOANA Board Certified, [place] Board of [employer] Medicine and Rehabilitation (ABPMR) Board Certified, [place] Board of Electrodiagnostic Medicine (ABEM) [place] [id number] [facility]
== END 2024-01-12 13:10 | disposition home or self-care (01) ==
LOC: HO.NEURO 13:09
PROVIDERS: PCP Internal Medicine; Visit Provider Internal Medicine
DX: R20.0 Anesthesia of skin (principal)
CPT/HCPCS: 95886; 95909

== ENCOUNTER → 2024-01-12 13:12 | Outpatient (BNV) | payer OTHER, SELFPAY | PROVIDERS: PCP Internal Medicine; Visit Provider Physical Medicine & Rehabilitation | DX: R20.0 Anesthesia of skin (principal); R20.2 Paresthesia of skin; M79.642 Pain in left hand | CPT/HCPCS: 95886; 95909 ==

== ENCOUNTER → 2024-01-22 19:26 | Outpatient (BNV) | payer OTHER, SELFPAY | PROVIDERS: PCP Internal Medicine; Visit Provider Radiology Diagnostic Radiology | DX: M54.16 Radiculopathy, lumbar region (principal) | CPT/HCPCS: 72148 ==

== ENCOUNTER 2024-01-22 19:27 | Outpatient (REF) | payer OTHER, SELFPAY ==
--- NOTE | ~2024-01-22 | MR_ITS ---
EXAMINATION: MR LUMBAR SPINE WITHOUT CONTRAST CLINICAL INFORMATION: Lumbar spinal pain x1 year, worsening, intermittent mobility limitations when the pain flares. Radiation/radiculopathy symptoms to left lower extremity and foot. COMPARISON: No prior MR. X-rays dated 03/25/2023. TECHNIQUE: Multiplanar multisequence MR imaging of the lumbar spine was done without IV contrast. Examination was performed on a 1.5 Genevieve Siemens magnet, utilizing standard sequences. FINDINGS: CORONAL ALIGNMENT: -Normal. SAGITTAL ALIGNMENT: -Straightened. -No subluxations aside from a 2 mm retrolisthesis of L5 on S1. LUMBOSACRAL JUNCTION: -Normal. There are 5 [id number] lumbar-type vertebral bodies. VERTEBRAL BODIES/BONE MARROW: -No compression deformities. -No bone marrow edema identified. -No suspicious abnormal infiltrating bone marrow signal. DISCS: -Mild loss of disc height and signal L5-S1. -Discs otherwise normal. SPINAL CANAL: -No abnormal developmental findings. CONUS MEDULLARIS: -Terminates at L1. Morphology and signal is normal. INTRADURAL NERVE ROOTS: - Normal in appearance without clumping or mass. Axial Disc Space Images: T12-L1: No central canal or neural foraminal narrowing. Normal facets. L1-L2: Minimal physiologic diffuse bulging of the disc. No significant central canal or neural foraminal narrowing. Normal facets. L2-L3: Mild physiologic diffuse disc bulging. No significant central canal, lateral recess, or neural foraminal narrowing. Normal facets. L3-L4: Mild physiologic bulging of the disc. No significant central canal stenosis. There is mild left lateral recess narrowing without definite impingement of the traversing L4 roots. Minimal facet degeneration bilaterally. There is mild bilateral neural foraminal narrowing. L4-L5: Shallow disc bulging is present diffusely and concentrically, extending into both foraminal zones. Mild hypertrophic facet changes bilaterally with mild posterior ligamentous thickening/infolding. Combination of findings result in minimal central canal narrowing, no significant subarticular recess narrowing, and mild bilateral neural foraminal narrowing. L5-S1: There is a central and left paracentral extrusion of disc material with a broad base. (Series 8, image 28). Coupled with mild to moderate hypertrophic degenerative facet changes bilaterally, findings result in mild to moderate central canal stenosis, moderate to severe left subarticular recess stenosis with contact, displacement, and possible mild impingement of the traversing left S1 root. There is mild right subarticular recess narrowing without mass effect upon the right traversing S1 roots. There is mild to moderate left greater than right neural foraminal narrowing. IMAGED SI JOINTS: -Normal. PARAVERTEBRAL AND INCLUDED EXTRASPINAL SOFT TISSUES: -Normal. MR/MR lumbar spine wo con IMPRESSION: 1. Mild straightening of the normal lordosis. No scoliosis. 2. No bone marrow edema or pathologic bone marrow signal. 3. Mild disc degeneration relatively confined to L5-S1. 4. Broad-based central and left paracentral disc extrusion at L5-S1, resulting in significant impingement of the traversing left S1 nerve root within the subarticular recess. There is mild to moderate central canal stenosis. 5. No additional significant disc herniation, central canal narrowing, subarticular recess narrowing, or neural foraminal narrowing. 6. See the body the report for further detail. Electronically signed by: Marcin Watson MD 02/17/2024 09:33 AM ALEX GORDON
== END 2024-01-22 19:28 | disposition home or self-care (01) ==
LOC: HO.MRI 19:27
PROVIDERS: PCP Internal Medicine; Visit Provider Internal Medicine
DX: M54.10 Radiculopathy, site unspecified (principal)
CPT/HCPCS: 72148

== ENCOUNTER 2024-03-02 11:15 | Outpatient (AMB) | payer OTHER, SELFPAY ==
--- NOTE | 2024-03-02 11:15 | A.OFFPC_ITS ---
Intake Visit Reasons: 2 month follow up/[phone] Intake Note: Patient is here to follow up Allergies No Known Allergies Allergy (Verified 03/02/24 11:15) Tobacco use date assessed: 12/22/23 Dental Screening Dental Screen Date: 12/22/23 HPI 2 month follow up/[phone] HPI Details 28-year-old male with past medical histo ry of elevated fasting glucose, elevated liver function testing last seen by Dr. Ceja December 2023 calling in for follow up. In review of the notes patient had lumbar spine MRI completed 02/17/2024 which showed: 1. Mild straightening of the normal lord osis. No scoliosis. 2. No bone marrow edema or pathologic angelina ne marrow signal. 3. Mild disc degeneration relatively con fined to L5-S1. 4. Broad-based central and left paracent ral disc extrusion at L5-S1, resulting in significant impingement of the traversing left S1 nerve root within the subarticular recess. There is mild to moderate central canal stenosis. 5. No additional significant disc hernia tion, central canal narrowing, subarticular recess narrowing, or neural foraminal narrowing. Patient was referred to spine center and has a appointment 03/05/2024. He states his back pain has been stable and he has been avoiding heavy lifting or strenuous activity. He takes Tylenol and ibuprofen as needed and uses pillows for support when he lays flat. He was previously working with physical therapy and found that most of the exercise worsen his pain. He has no other concerns today. [facility] Medical History (Updated 02/17/24 @ 17:58 by Surjit Ceja MD) Right bundle branch block Surgical History Hx of LASIK Family History Mother No problems noted. Father No problems noted. Sister No problems noted. Maternal Aunt Hyperthyroidism Maternal Grandmother Diabetes mellitus Social History Housing: House Alcohol intake: never Patient Tobacco Use Status: Never used Tobacco Tobacco use type: Cigarette e-Cigarette/Vaping Use: Never Used Second Hand Smoke Exposure: No service: No Current occupational status: employed Current occupational exposures/hazards: No Cognitive needs: No Hearing needs: No Vision needs: No Questionnaire Thrive Questionnaire Date Thrive assessed: 12/15/23 I am a: Patient What is your living situation today?: I have a steady place to live Within the past 12 months, did the food you bought not last and you didn't have the money to get more?: Never true Within the past 12 months, did you worry whether your food would run out before you got money to buy more?: Never true Do you have trouble paying for medicines?: No Do you have trouble getting transportation to medical appointments?: No Do you have trouble paying your heating and electricity bill?: No Do you have trouble taking care of your child, family member or friend?: No Do you have trouble with day-to-day activities such as bathing, preparing meals, shopping, managing finances, etc.?: No Are you currently unemployed and looking for a job?: No Are you interested in more education?: No Please select the resources that you would like help with: None Currently or been in a relationship where the following occur: No concerns reported THRIVE Score: 0 AUDIT C Alcohol Use Questionnaire (AUDIT-C) 1. How often do you have a drink containing alcohol?: Never 2. How many drinks containing alcohol do you have on a typical day when you are drinking?: 1 or 2 3. How often do you have six or more drinks on one occasion?: Never Total Score: 0 OLLIE-7 AMB Questionnaire OLLIE-7 Date OLLIE - 7 assessed: 01/06/24 Source: Developed by Drs. Liam Taylor, Charito Gomez, Alexey Medrano and colleagues, with an educational roosevelt from [employer]. Review of Systems Const Denies chills, Denies fever(s) and Denies poor appetite Eyes Reports no additional complaints ENT Reports no additional complaints Card Denies chest pain and Denies dyspnea Resp Denies cough and Denies dyspnea GI Reports no additional complaints Details: No involuntary loss of stool or urine Reports no additional complaints Musc Reports abnormal gait and Reports back pain Skin/Breast Reports system reviewed and no additional complaints, except as documented Neuro Reports abnormal gait Psych Reports no additional complaints Physical exam (Primary Care) Tobacco/Smoking Status: Tobacco use Status Tobacco use date assessed 12/22/23 03/02/24 11:17 Patient Tobacco Use Status Never used Tobacco 03/02/24 11:17 Tobacco use type Cigarette 03/02/24 11:17 e-Cigarette/Vaping Use Never Used 03/02/24 11:17 Thrive Assessment: Date of Thrive Assessment Date Thrive assessed 12/15/23 03/02/24 11:17 Currently or been in a relationship where the following occur: No concerns reported Const Other: Physical exam not performed due to nature of telehealth visit. Telehealth Telehealth Telehealth Platform: Telephone Location of provider rendering services: practice address Location of patient: address on file Patient Identification confirmed using: Name, : Yes Telehealth method: voice only Patient verbally consented to treatment: Yes Patient verbally consented to billing insurance company: Yes Patient informed of any privacy concerns related to visit: Yes Coding Level of Care Code Tele Est Pt Level 3 (62024) Diagnoses Radicular low back pain M54.10 Assessment & Plan Assessment & Plan (1) Radicular low back pain: Comment: February 2024 Mild straightening of the normal lordosis. No scoliosis. 2. No bone marrow edema or pathologic bone marrow signal. 3. Mild disc degeneration relatively confined to L5-S1. 4. Broad-based central and left paracentral disc extrusion at L5-S1, resulting in significant impingement of the traversing left S1 nerve root within the subarticular recess. There is mild to moderate central canal stenosis. 5. No additional significant disc herniation, central canal narrowing, subarticular recess narrowing, or neural foraminal narrowing. 6. See the body the report for further detail. Code(s): M54.10 - Radiculopathy, site unspecified Category: Medical Plan: Referral was placed to [facility] spinal center and has appointment 03/05/2024. Advised patient to follow up with spinal center regarding restrictions for activity and work. Continue to use Tylenol and ibuprofen as needed for pain. Follow up as needed for this concern. Plan This note was constructed using voice recognition software. While every effort has been made to ensure accuracy and poolroom/poolhall manager, still areas may have been included sometimes these areas may affect the content or meeting of the given symptoms. Total time spent caring for the patient today was 20 minutes. This includes time spent before the visit reviewing the chart, time spent during the visit, and time spent after the visit and documentation.
== END 2024-03-02 12:00 | disposition home or self-care (01) ==
LOC: HO.HMCH 11:15
PROVIDERS: PCP Internal Medicine
DX: M54.10 Radiculopathy, site unspecified (principal)

== ENCOUNTER → 2024-03-02 11:15 | Outpatient (BNVA) | payer OTHER, SELFPAY | PROVIDERS: PCP Internal Medicine ==

== ENCOUNTER 2024-03-05 10:19 | Outpatient (AMB) | payer OTHER, SELFPAY ==
--- NOTE | 2024-03-05 10:36 | A.SPINEOV_ITS ---
Intake Visit Reasons: LBP Intake Note: Mr. Indu Dai is here today c/o low back pain that radiates down left leg. Trap Setter Required: No Allergies No Known Allergies Allergy (Verified 03/02/24 11:15) Assessment & Plan Assessment & Plan (1) Lumbar back pain: Code(s): M54.50 - Low back pain, unspecified Category: Medical Plan Dear Dr Ceja, Thank you for referring Mr Edwina Dai to our office today. 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 Intermittently will get pain down his left leg. The primary symptom no however centralized low back pain. When he is doing activities at the hospital, he will feel some discomfort. In general it is pretty manageable, he rates the pain around a 1 or 2, 3 when it is at its worst. Again he does have occasional radiculopathy in his left leg but it is really only a intermittent issue nothing that is affecting his quality of life. He did go to PT for awhile, but stopped doing the exercises. He will take ibuprofen p.r.n.. He is here today to follow up with an MRI showing a degenerative disc at L5-S1. PMH: Otherwise healthy Social hx: Does not smoke, drink use any recreational drugs Medications: None Allergies: None Physical exam: Strength, gait and reflexes normal Imaging review: Lumbar MRI shows some mild to moderate disc degeneration at L5- S1, paracentral to the left there is some crowding of the lateral recess near the S1 nerve root. 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 There is some effacement of the lateral recess on the left near the S1 nerve root but he does not really have much in the way of radiculopathy symptoms. I showed him his MRI, we discussed at length the natural history of back pain, degenerative disc disease as well as avoidance of stressors, irritants, the importance of keeping his weight down, core strength etc.. At this point given that the degeneration is [id number] in his symptoms are relatively mild on the pain scale, I would not recommend surgery for him. In general, when it comes to surgery for degenerative disc, it is best to hold off as long as possible with surgery. He will come back to see me down the road if something changes. Thank you for allowing us to care for your patient. The total time spent with this visit with this patient was 45 minutes reviewing history, physical exam, lumbar imaging review, and implementation of treatment plan or further diagnostic testing Dave Lozano MD,PhD [facility] Coding Level of Care Code New Pt Level 4 (85027) Diagnoses Lumbar back pain M54.50
== END 2024-03-05 11:37 | disposition home or self-care (01) ==
PROVIDERS: PCP Internal Medicine; Referring Provider Internal Medicine; Visit Provider Physician Assistant
DX: M54.50 Low back pain, unspecified (principal)
CPT/HCPCS: 99204

== ENCOUNTER 2024-05-23 11:42 | Outpatient (REF) | payer OTHER, SELFPAY ==
[2024-05-23 13:10] LABS: Vitamin D 25-OH Total 27.3 ng/mL (>30)
== END 2024-05-23 11:43 | disposition home or self-care (01) ==
LOC: HO.LAB 11:42
PROVIDERS: PCP Internal Medicine; Visit Provider Internal Medicine
DX: Z00.00 Encounter for general adult medical examination without abnormal findings (principal)
CPT/HCPCS: 36415; 82306

== ENCOUNTER 2024-07-13 12:28 | Outpatient (AMB) | payer OTHER, SELFPAY ==
--- NOTE | 2024-07-13 12:42 | A.OFFVIS_ITS ---
Vital Signs 07/13/24 12:44 Height 5 ft 7 in Weight 160 lb 14.999 oz BMI 25.2 BP 102/64 Blood Pressure Location Lt brachial Position Sitting Pulse 56 Intake Visit Reasons: fatty liver Intake Note: Torrey presents in the office as a new patient for Fatty Liver. CC: He states that he is not having any concerns at this time. 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 Pt reports no abd pain, N,V, D. No pruritus, increased in abd girth. No personal hx of etOH use or IVDU. No fam hx of liver disease. Pt had labs done that mildly up ALT in 03/2023. THis was followed up with an US that showed mild changes in hepatic echotexture possibly from steatosis. LFTs since then have normalized. [facility] Medical History (Updated 07/13/24 @ 13:07 by Soumya Antonio MD) Right bundle branch block Surgical History (Updated 07/13/24 @ 12:44 by MARY Silvestre) History of esophagogastroduodenoscopy (EGD) Hx of LASIK Family History Mother No problems noted. Father No problems noted. Sister No problems noted. Maternal Aunt Hyperthyroidism Maternal Grandmother Diabetes mellitus Social History Housing: House Alcohol intake: never Patient Tobacco Use Status: Never used Tobacco Tobacco use type: Cigarette e-Cigarette/Vaping Use: Never Used Second Hand Smoke Exposure: No service: No Current occupational status: employed Current occupational exposures/hazards: No Cognitive needs: No Hearing needs: No Vision needs: No Review of Systems Const All systems reviewed & are unremarkable except as noted in HPI and below Physical Exam Vital Signs: Last Vital Signs Pulse 56 07/13/24 12:44 BP 102/64 07/13/24 12:44 BMI result Body Mass Index 25.2 No apparent distress Nonicteric Abdomen soft, nondistended Alert and oriented x3, normal gait Assessment & Plan Assessment & Plan (1) Hepatic steatosis: Code(s): K76.0 - Fatty (change of) liver, not elsewhere classified Category: Medical Plan Reviewed in the absence of significant LFT elevation and other risk factors for liver disease, not terribly concerned about mild changes in US. To recall, also hydropress operator dependent. Will get labs to r/o other chronic liver disease. Plan: - Labs as below - if w/up neg, no further testing needed at this time - LFTs can then be monitored on a qyearly basis through PCP office Follow up contingent on above Orders: Orders Complete Blood Count no Diff Today K76.0 - Fatty (change of) liver, not elsewhere classified Comprehensive Met. Panel Today K76.0 - Fatty (change of) liver, not elsewhere classified Prothrombin Time INR Today K76.0 - Fatty (change of) liver, not elsewhere classified Alpha 1 Anti-trypsin Today K76.0 - Fatty (change of) liver, not elsewhere classified Ceruloplasmin Today K76.0 - Fatty (change of) liver, not elsewhere classified Gamma Glutamyl Transpeptidase Today K76.0 - Fatty (change of) liver, not elsewhere classified Hemoglobin A1c Today K76.0 - Fatty (change of) liver, not elsewhere classified HIV Ab/Ag Today K76.0 - Fatty (change of) liver, not elsewhere classified Immunoglobulin G Today K76.0 - Fatty (change of) liver, not elsewhere classified Immunoglobulin A Today K76.0 - Fatty (change of) liver, not elsewhere classified IRON PROFILE Today K76.0 - Fatty (change of) liver, not elsewhere classified Mitochondrial Antibody Today K76.0 - Fatty (change of) liver, not elsewhere classified Smooth Muscle Antibody Today K76.0 - Fatty (change of) liver, not elsewhere classified MARCIO Reflex Titer and Pattern Today K76.0 - Fatty (change of) liver, not elsewhere classified Ferritin Today K76.0 - Fatty (change of) liver, not elsewhere classified Lipid Panel Today K76.0 - Fatty (change of) liver, not elsewhere classified Liver Kidney Microsomal Ab Today K76.0 - Fatty (change of) liver, not elsewhere classified Phosphatidylethanol, Blood Today K76.0 - Fatty (change of) liver, not elsewhere classified Coding Level of Care Code New Pt Level 4 (20657) Diagnoses Hepatic steatosis K76.0
[2024-07-13 12:44] VITALS: BP 102/64; PULSE 56; BMI 25.2
== END 2024-07-13 13:24 | disposition home or self-care (01) ==
LOC: HO.HGI 12:29
PROVIDERS: PCP Internal Medicine; Visit Provider Internal Medicine
DX: K76.0 Fatty (change of) liver, not elsewhere classified (principal)
CPT/HCPCS: 99204

== ENCOUNTER → 2024-07-13 12:28 | Outpatient (BNVA) | payer OTHER, SELFPAY | PROVIDERS: PCP Internal Medicine; Visit Provider Internal Medicine ==

== ENCOUNTER 2024-07-20 09:24 | Outpatient (REF) | payer OTHER, SELFPAY ==
[2024-07-20 09:57] LABS: Hematocrit 39.8 % (42.0-52.0); Hemoglobin 13.9 g/dl (14.0-18.0); Mean Corpuscular HGB Conc 34.9 g/dl (31.0-36.0); Mean Corpuscular Hemoglobin 30.3 pg (27.0-33.0); Mean Corpuscular Volume 86.7 fL (80.0-98.0); Mean Platelet Volume 12.7 fL (9.4-12.4); Platelet Count 178 X10*3/uL (160-400); Red Blood Count 4.59 X10*6/uL (4.60-5.80); Red Cell Distribution Width 12.4 % (11.0-16.0); White Blood Count 4.2 X10*3/uL (4.8-10.8)
[2024-07-20 10:02] LABS: Prothrombin Time 11.9 SEC (10.9-12.4)
[2024-07-20 10:08] LABS: Estimated Average Glucose 97 mg/dL; Hemoglobin A1C 114.5061 umol/L; Total Hemoglobin (HGBA1C) 3666.4925 umol/L
[2024-07-20 10:26] LABS: Alanine Aminotransferase 20 U/L (0-40); Albumin Level 4.4 g/dL (3.5-5.0); Alkaline Phosphatase 43 U/L (39-117); Anion Gap 7 (12-20); Aspartate Amino Transferase 19 U/L (5-37); Bilirubin Total 0.7 mg/dL (0.0-1.0); Blood Urea Nitrogen 13 mg/dL (9-16); Calcium 9.2 mg/dL (8.4-10.2); Carbon Dioxide 29 mmol/L (22-29); Chloride 108 mmol/L (96-108); Cholesterol 159 mg/dL (<200); Estimated Glomerular Filt Rate > 60; Glucose Random 94 mg/dL (60-115); HDL Cholesterol 42 mg/dL (>40); Iron 138 mcg/dL (45-160); LDL Cholesterol Calculated 106 mg/dL (<100); Percent Iron Saturation 47 % (15-50); Potassium 4.2 mmol/L (3.3-5.1); Sodium 140 mmol/L (135-145); Total Iron Binding Capacity 291 mcg/dL (228-428); Total Protein 7.3 g/dL (6.5-8.0); Triglycerides 57 mg/dL (<150); Unsaturated Iron Binding 153 ug/dL
[2024-07-20 10:37] LABS: Ferritin 137 ng/mL (20-250); Gamma Glutamyl Transpeptidase 16 U/L (11-51); HIV AB/AG Nonreactive (Nonreactive); HIV Num 1 0.06 S/CO (0.00-0.99)
[2024-07-23 15:43] LABS: Alpha 1 Anti-trypsin 133 mg/dL (83-199); Ceruloplasmin 21 mg/dL (14-30); Immunoglobulin A 162 mg/dL (47-310); Immunoglobulin G 1329 mg/dL (600-1640)
[2024-07-24 12:24] LABS: Mitochondrial Antibodies NEGATIVE (NEGATIVE)
[2024-07-25 10:39] LABS: Anti Nuclear Antibody Screen NEGATIVE (NEGATIVE)
[2024-07-25 15:29] LABS: Smooth Muscle Antibody <20 U (<20)
[2024-07-25 16:23] LABS: Liver Kidney Microsomal Ab <=20.0 U (<=20.0)
[2024-07-26 11:43] LABS: Phosphatidylethanol 16:0-18:1 NEGATIVE; Phosphatidylethanol 16:0-18:2 NEGATIVE
== END 2024-07-20 09:25 | disposition home or self-care (01) ==
LOC: HO.LAB 09:24
PROVIDERS: PCP Internal Medicine; Visit Provider Internal Medicine
DX: K76.0 Fatty (change of) liver, not elsewhere classified (principal); Z13.89 Encounter for screening for other disorder
CPT/HCPCS: 36415; 80053; 80061; 80321; 82103; 82390; 82728; 82784; 82977; 83036; 83540; 85027; 85610; 86015; 86038; 86376; 86381; 87389

== ENCOUNTER → 2025-01-03 15:59 | Outpatient (AMB) | payer OTHER, SELFPAY ==
[2025-01-03 16:07] VITALS: BP 116/62; PULSE 75; O2SAT 98; BMI 25.5
--- NOTE | 2025-01-03 16:07 | A.OFFPC_ITS ---
Vital Signs 01/03/25 16:07 Height 5 ft 7 in Weight 163 lb BMI 25.5 BP 116/62 Blood Pressure Location Lt brachial Position Sitting Pulse 75 Pulse Source Pulse Oximeter Pulse Oximetry (%) 98 Oxygen Delivery Method Room Air Intake Visit Reasons: PHYSICAL Allergies No Known Allergies Allergy (Verified 01/03/25 16:08) Medication List - Last Reconciled 01/03/25 by Surjit Ceja MD cholecalciferol (vitamin D3) 50 mcg PO DAILY 90 days epinephrine IM Tobacco use date assessed: 01/03/25 Dental Screening Dental Screen Date: 01/03/25 Did you have a dental visit in the last 12 months?: Yes Did you have a dental problem in the last 6 months where you did not have access to dental care?: No Was dental information given to patient?: Patient has dentist HPI PHYSICAL HPI Details occ dizzy, occ tinnitus states hearing loss after intercouse, 30 sec, odd smell on urine. [facility] Medical History (Updated 01/03/25 @ 17:10 by Surjit Ceja MD) Right bundle branch block Surgical History (Updated 07/13/24 @ 12:44 by MARY Silvestre) History of esophagogastroduodenoscopy (EGD) Hx of LASIK Family History Mother No problems noted. Father No problems noted. Sister No problems noted. Maternal Aunt Hyperthyroidism Maternal Grandmother Diabetes mellitus Social History Housing: House Alcohol intake: never Patient Tobacco Use Status: Never used Tobacco Tobacco use type: Cigarette e-Cigarette/Vaping Use: Never Used Second Hand Smoke Exposure: No service: No Current occupational status: employed Current occupational exposures/hazards: No Cognitive needs: No Hearing needs: No Vision needs: No Questionnaire PHQ-9 Over the last 2 weeks, how often have you been bothered by any of the following problems? 1. Little interest or pleasure in doing things: not at all 2. Feeling down, depressed, or hopeless: not at all 3. Trouble falling or staying asleep, or sleeping too much: not at all 4. Feeling tired or having little energy: not at all 5. Poor appetite or overeating: not at all 6. Feeling bad about yourself - or that you are a failure or have let yourself or your family down: not at all 7. Trouble concentrating on things, such as reading the newspaper or watching television: not at all 8. Moving or speaking so slowly that other people could have noticed. Or the opposite - being so fidgety or restless that you have been moving around a lot more than usual: not at all 9. Thoughts that you would be better off or of hurting yourself in some way: not at all Total score: 0 Depression Screening Interpretation: Negative Depression Screening Done: Yes Source: Developed by Drs. Liam Taylor, Charito Gomez, Alexey Medrano and colleagues, with an educational roosevelt from [employer]. Thrive Questionnaire Date Thrive assessed: 12/27/24 I am a: Patient What is your living situation today?: I have a steady place to live Within the past 12 months, did the food you bought not last and you didn't have the money to get more?: Never true Within the past 12 months, did you worry whether your food would run out before you got money to buy more?: Never true Do you have trouble paying for medicines?: No Do you have trouble getting transportation to medical appointments?: No Do you have trouble paying your heating and electricity bill?: No Do you have trouble taking care of your child, family member or friend?: No Do you have trouble with day-to-day activities such as bathing, preparing meals, shopping, managing finances, etc.?: No Are you currently unemployed and looking for a job?: No Are you interested in more education?: No Please select the resources that you would like help with: None Currently or been in a relationship where the following occur: No concerns reported THRIVE Score: 0 AUDIT C Alcohol Use Questionnaire (AUDIT-C) 1. How often do you have a drink containing alcohol?: Never 3. How often do you have six or more drinks on one occasion?: Never Total Score: 0 OLLIE-7 AMB Questionnaire OLLIE-7 Date OLLIE - 7 assessed: 01/03/25 Feeling nervous, anxious, or on edge: 0 = Not at all Not being able to stop or control worryin = Not at all Worrying too much about different things: 0 = Not at all Trouble relaxin = Not at all Being so restless that it is hard to sit still: 0 = Not at all Becoming easily annoyed or irritable: 0 = Not at all Feeling afraid as if something awful might happen: 0 = Not at all Total OLLIE-7 score (0-4 normal; 5-9 mild; 10-14 moderate; 15-21 severe): 0 Source: Developed by Drs. Liam Taylor, Charito Gomez, Alexey Medrano and colleagues, with an educational roosevelt from [employer]. Review of Systems Const Denies poor appetite and Denies weakness Eyes Denies no additional complaints ENT Reports Normal hearing present, Denies dizziness, Denies nasal congestion, Denies tinnitus and Denies sore throat Card Denies chest pain, Denies syncope, Denies rapid heart rate and Denies dyspnea Resp Denies cough and Denies dyspnea GI Denies change in stool character, Reports constipation, Denies diarrhea, Denies nausea and Denies vomiting Denies dysuria and Denies urinary frequency Neuro Reports Normal hearing present, Denies confusion, Denies dizziness, Denies syncope and Denies weakness Psych Denies confusion Physical exam (Primary Care) Vital Signs: Last Vital Signs Pulse 75 01/03/25 16:07 BP 116/62 01/03/25 16:07 Pulse Ox 98 01/03/25 16:07 Oxygen Delivery Method Room Air 01/03/25 16:07 BMI result Body Mass Index 25.5 Tobacco/Smoking Status: Tobacco use Status Tobacco use date assessed 01/03/25 01/03/25 16:08 Patient Tobacco Use Status Never used Tobacco 01/03/25 16:08 Tobacco use type Cigarette 01/03/25 16:08 e-Cigarette/Vaping Use Never Used 01/03/25 16:08 PHQ-9: PHQ-9 Score PHQ-9: Total score 0 01/03/25 16:33 Depression Screening Interpretation: Negative Thrive Assessment: Date of Thrive Assessment Date Thrive assessed 12/27/24 01/03/25 16:08 Currently or been in a relationship where the following occur: No concerns reported Const General: alert and awake; No confusion Orientation/consciousness: No confusion HENMT Head: Yes normocephalic Ears: external ears normal and TM's normal bilaterally Face and sinus: Yes normal facial exam Mouth: moist mucous membranes Throat: Yes tonsils normal Eyes Conjunctivae: conjunctivae normal Pupils: Equal, round and reactive pupils present and Pupil accommodation reflex normal Direct Ophthalmoscopy: normal light reflex Neck Neck: No lymphadenopathy Thyroid: Thyroid normal Chest Chest palpation & inspection: normal inspection of the chest Resp Effort & Inspection: normal respiratory effort and no audible wheezes Auscultation: clear to auscultation bilaterally, no crackles, no wheezes and lung sounds not diminished Cardio Rate: regular rate Rhythm: regular rhythm Peripheral pulses: radial pulses present and dorsalis pedis present GI Palpation (GI): no masses Auscultation: normal bowel sounds and normoactive bowel sounds Rectal Exam - Male: Yes deferred Skin General skin exam: no rashes or lesions noted Rashes: no rashes Neuro General: deep tendon reflexes 2+ bilaterally and No confusion Cranial nerves: Yes Equal, round and reactive pupils present, Yes Midline tongue present, Yes Normal hearing present and Yes Ability to bilaterally elevate shoulders present Cognition (Neuro): normal cognition Gait exam (Neuro): Normal gait present Motor exam (neuro): 5/5 motor strength present throughout Deep tendon reflexes (DTR's): Right brachioradialis reflex intensity grade: 2+, Left brachioradialis reflex intensity grade: 2+, Right patellar reflex intensity grade: 2+ and Left patellar reflex intensity grade: 2+ Extrem General: No edema Coding Level of Care Code Est Pt Prev Care [id number]([id number]) Diagnoses Annual physical exam Z00.00 Radicular low back pain M54.10 Hepatic steatosis K76.0 Attention deficit R41.840 Assessment & Plan Assessment & Plan (1) Annual physical exam: Code(s): Z00.00 - Encounter for general adult medical examination without abnormal findings Category: Medical Plan: Patient is advised to eat healthy, keep well hydrated, keep active and have adequate sleep. (2) Radicular low back pain: Comment: February 2024 Mild straightening of the normal lordosis. No scoliosis. 2. No bone marrow edema or pathologic bone marrow signal. 3. Mild disc degeneration relatively confined to L5-S1. 4. Broad-based central and left paracentral disc extrusion at L5-S1, resulting in significant impingement of the traversing left S1 nerve root within the subarticular recess. There is mild to moderate central canal stenosis. 5. No additional significant disc herniation, central canal narrowing, subarticular recess narrowing, or neural foraminal narrowing. 6. See the body the report for further detail. Code(s): M54.10 - Radiculopathy, site unspecified Category: Medical Plan: Patient has seen the neurosurgeon and best keeping active. (3) Hepatic steatosis: Code(s): K76.0 - Fatty (change of) liver, not elsewhere classified Category: Medical Plan: Low-fat diet and exercise. Patient did see Gastroenterology. (4) Attention deficit: Code(s): R41.840 - Attention and concentration deficit Category: Medical Plan History of Present Illness The patient is a 29-year-old male presenting for a physical exam and management of low back pain. The patient has a history of low back pain, for which he was last seen in February 2024. He has consulted with a spine center and was advised against surgery, instead being encouraged to remain active. Nerve conduction tests were performed and returned normal results. The patient also has hepatic steatosis, for which he consulted gastroenterology in July. A workup was recommended, and a repeat ultrasound was scheduled but later canceled. The patient has lost 10 pounds since weighing 266 pounds, and he is concerned about the progression of his condition. The patient has a history of mild anemia, with the last blood work showing hemoglobin levels of 13.9 g/dL and hematocrit of 39.8%. Other lab results indicated normal electrolytes, renal function, blood sugar, hemoglobin A1c, iron levels, and liver function tests. Cholesterol levels were normal, but vitamin D levels were mildly low. The patient reports episodes of dizziness, particularly when changing positions from lying down to standing, which he associates with benign paroxysmal positional vertigo (BPPV). He denies any chest discomfort, shortness of breath, or other significant symptoms. The patient experiences tinnitus, primarily in the right ear, which has been evaluated by an ENT with no abnormalities found. Health Maintenance - Repeat ultrasound for hepatic steatosis was scheduled but canceled; patient advised to reschedule. - Blood work to monitor anemia, vitamin D, and B12 levels. - Urinalysis to investigate urinary symptoms. Social History - Exercise: Patient engages in walking and acknowledges the need for more cardiovascular exercise. - Diet: Patient follows a low-fat diet and consumes a variety of greens. - Substance Use: Denies alcohol and tobacco use. Review of Systems - Cardiovascular: Denies chest pain, orthopnea, or syncope. - Neurological: Reports dizziness when changing positions; denies headaches or balance issues. - ENT: Reports tinnitus primarily in the right ear; denies hearing loss. - Respiratory: Denies shortness of breath or cough. - Gastrointestinal: Denies heartburn or constipation; reports normal bowel movements. - Genitourinary: Reports occasional odd-smelling urine and post-void dribbling. Physical Exam General: Cooperative, healthy appearing, comfortable, no acute distress and well developed Orientation: Patient oriented x3 Limitations: No limitations Head: Normal to inspection Ears: Hearing grossly normal bilaterally, but patient reports occasional ringing in the ears, mainly on the right side, and temporary hearing loss during intercourse Nose: Normal external nose present Face and sinus: Normal facial exam Eyes: Appearance normal, both eyes and all related structures Neck: Normal visual inspection and Yes full ROM Respiratory: Normal respiratory effort and able to speak in complete sentences. Clear to auscultation bilaterally Cardiovascular: Regular rate and rhythm. Normal S1 and S2 GI: Normal to inspection. Soft to palpation and nontender Skin: No rashes or lesions noted Neuro: Patient oriented x3, reports dizziness when changing positions, possibly benign positional vertigo (BPPV) Extremities: Normal to inspection Results - Labs: Mild anemia with hemoglobin 13.9 g/dL and hematocrit 39.8%. - Labs: Normal electrolytes, renal function, blood sugar, hemoglobin A1c, iron levels, and liver function tests. - Labs: Normal cholesterol levels, mildly low vitamin D. - Tests: Normal nerve conduction study results. Plan Patient was informed and verbally consented to the use of an ambient scribe for clinic note documentation during this visit. 1. Low Back Pain The patient was advised against surgical intervention and encouraged to maintain an active lifestyle to manage his low back pain. Nerve conduction studies were normal, and the patient was seen at a spine center for further evaluation. 2. Hepatic Steatosis The patient was advised to reschedule a repeat ultrasound to monitor the progression of hepatic steatosis. Weight loss was noted, and the patient is advised to continue monitoring his condition with gastroenterology follow-up. 3. Anemia The patient will undergo further blood work to monitor anemia, including hemoglobin and hematocrit levels. 4. Vitamin D Deficiency The patient will have vitamin D levels rechecked and is advised to continue vitamin D supplementation. Discussion Notes During the visit, I discussed with the patient the importance of maintaining an active lifestyle to manage his low back pain and advised against surgery at this time. We reviewed the need for a repeat ultrasound to monitor hepatic steatosis and emphasized the importance of follow-up with gastroenterology. I also recommended further blood work to monitor anemia and vitamin D levels, and we discussed the patient's current supplementation regimen. Patient Instructions - Stay active to help manage low back pain. - Reschedule and complete the ultrasound for hepatic steatosis monitoring. - Follow up with gastroenterology as advised. - Continue vitamin D supplementation and have levels rechecked. - Complete blood work as ordered to monitor anemia and other health parameters. Orders: Orders US abdomen complete Today K76.0 - Fatty (change of) liver, not elsewhere classified, R79.89 - Other specified abnormal findings of blood chemistry Complete Blood Count Auto Diff Today D64.9 - Anemia, unspecified Thyroid Stimulating Hormone Today D64.9 - Anemia, unspecified Vitamin B12 and Folate Today D64.9 - Anemia, unspecified Hemoglobin A1c Today D64.9 - Anemia, unspecified Magnesium Today D64.9 - Anemia, unspecified UA CC w/rflx Micro + Cult Today D64.9 - Anemia, unspecified, R30.0 - Dysuria Comprehensive Met. Panel Today D64.9 - Anemia, unspecified Ferritin Today D64.9 - Anemia, unspecified IRON PROFILE Today D64.9 - Anemia, unspecified Lipid Panel Today D64.9 - Anemia, unspecified, E78.00 - Pure hypercholesterolemia, unspecified Vitamin D 25-OH Total Today D64.9 - Anemia, unspecified Free T4 (Free Thyroxine) Today D64.9 - Anemia, unspecified Reticulocyte Count Today D64.9 - Anemia, unspecified Referrals Psychiatry Outpatient Consultation Service R41.840 - Attention and concentration deficit
== END ==
LOC: HO.HMCH 15:59
PROVIDERS: PCP Internal Medicine; Visit Provider Internal Medicine
DX: Z00.00 Encounter for general adult medical examination without abnormal findings (principal); M54.10 Radiculopathy, site unspecified; K76.0 Fatty (change of) liver, not elsewhere classified; R41.840 Attention and concentration deficit

== ENCOUNTER 2025-02-06 15:16 | Outpatient (REF) | payer OTHER, SELFPAY ==
[2025-02-06 15:33] LABS: MANUAL DIFF FLAG NO
[2025-02-06 16:09] LABS: Hematocrit 39.2 % (42.0-52.0); Hemoglobin 13.4 g/dl (14.0-18.0); Imm Gran Abs Auto 0.01 X10*3/uL (0.00-0.03); Imm Gran Pct Auto 0.2 % (0.0-0.4); Lymphocytes Absolute Auto 1.9 X10*3/uL (1.2-4.9); Mean Corpuscular HGB Conc 34.2 g/dl (31.0-36.0); Mean Corpuscular Hemoglobin 30.0 pg (27.0-33.0); Mean Corpuscular Volume 87.7 fL (80.0-98.0); NRBC Abs Auto 0.000 X10*3/uL (0.0-0.012); NRBC Pct Auto 0.0 /100WBC (0.0-0.2); Platelet Count 180 X10*3/uL (160-400); Red Blood Count 4.47 X10*6/uL (4.60-5.80); Reticulocytes Absolute 0.067 X10*6/uL (0.026-0.095); White Blood Count 5.2 X10*3/uL (4.8-10.8)
[2025-02-06 16:38] LABS: Alanine Aminotransferase 23 U/L (0-40); Albumin Level 4.5 g/dL (3.5-5.0); Alkaline Phosphatase 42 U/L (39-117); Anion Gap 10 (12-20); Aspartate Amino Transferase 19 U/L (5-37); Blood Urea Nitrogen 15 mg/dL (9-16); Calcium 9.1 mg/dL (8.4-10.2); Carbon Dioxide 30 mmol/L (22-29); Chloride 106 mmol/L (96-108); Cholesterol 160 mg/dL (<200); Estimated Glomerular Filt Rate > 60; HDL Cholesterol 43 mg/dL (>40); Iron 104 mcg/dL (45-160); Magnesium 2.0 mg/dL (1.6-2.6); Percent Iron Saturation 37 % (15-50); Potassium 4.0 mmol/L (3.3-5.1); Sodium 142 mmol/L (135-145); Total Iron Binding Capacity 280 mcg/dL (228-428); Total Protein 7.3 g/dL (6.5-8.0); Triglycerides 62 mg/dL (<150); Unsaturated Iron Binding 176 ug/dL
[2025-02-06 16:55] LABS: Ferritin 128 ng/mL (20-250); Free T4 (Free Thyroxine) 1.00 ng/dL (0.71-1.85); Thyroid Stimulating Hormone 1.62 uIU/mL (0.32-4.0)
[2025-02-06 17:04] LABS: Folate 6.5 ng/mL (> or = 4.0); Vitamin B12 928 pg/mL (200-900)
== END 2025-02-06 15:17 | disposition home or self-care (01) ==
LOC: HO.LAB 15:16
PROVIDERS: PCP Internal Medicine; Visit Provider Internal Medicine
DX: Z13.1 Encounter for screening for diabetes mellitus (principal); D64.9 Anemia, unspecified; E78.00 Pure hypercholesterolemia, unspecified
CPT/HCPCS: 36415; 80053; 80061; 82306; 82607; 82728; 82746; 83036; 83540; 83735; 84439; 84443; 85025; 85045

== ENCOUNTER 2025-02-09 07:06 | Outpatient (REF) | payer OTHER, SELFPAY ==
[2025-02-09 07:23] LABS: Appearance Urine Clear; Glucose Urine UA Negative (Negative); PH 6.0 (5.0-9.0); Specific Gravity - Urine 1.020 (1.005-1.025)
== END 2025-02-09 07:07 | disposition home or self-care (01) ==
LOC: HO.LNP 07:06
PROVIDERS: Visit Provider Internal Medicine
DX: R30.0 Dysuria (principal); D64.9 Anemia, unspecified
CPT/HCPCS: 81003

== ENCOUNTER 2025-04-02 10:02 | Outpatient (REF) | payer OTHER, SELFPAY ==
--- NOTE | ~2025-04-02 | US_ITS ---
CLINICAL HISTORY: R79.89 - Other specified abnormal findings of blood chemistry US abdomen complete Comparison: US/DE/SR - US ABDOMEN COMPLETE - 12/29/23 08:15 EDT Findings: The visualized pancreas is normal, pancreatic tail and uncinate process are obscured by bowel gas. The visualized aorta and inferior vena cava are normal caliber. The liver is normal in size, right lobe length is 14.1 cm. Normal in echogenicity, no discrete lesion is visualized in the imaged liver. No intrahepatic bile duct dilatation. The common duct is 4 mm in diameter. Physiologic distention of the gallbladder wall, no stone or sludge, 4 x 4 x 4 mm polyp of the gallbladder body. Negative sonographic Menezes's sign. The main portal vein is patent with antegrade flow. The right kidney is normal, 10.5 cm in length. The left kidney is normal, 10.5 cm in length. The spleen is normal, 10.9 cm in length. No free fluid in the abdomen. Impression: 4 mm gallbladder polyp, otherwise unremarkable. This document has been electronically signed by: Asha Vaughn MD on 04/03/2025 15:43:09
== END 2025-04-02 10:03 | disposition home or self-care (01) ==
LOC: HO.US 10:02
PROVIDERS: PCP Internal Medicine; Visit Provider Internal Medicine
DX: R79.89 Other specified abnormal findings of blood chemistry (principal); K76.0 Fatty (change of) liver, not elsewhere classified
CPT/HCPCS: 76700

== ENCOUNTER → 2025-04-02 10:06 | Outpatient (BNV) | payer OTHER, SELFPAY | PROVIDERS: PCP Internal Medicine; Visit Provider Radiology Diagnostic Radiology | DX: K82.4 Cholesterolosis of gallbladder (principal) | CPT/HCPCS: 76700 ==